=== PATIENT | female | born 1930 | race Caucasian/White ===

== ENCOUNTER 2016-06-18 16:17 | Observation (INO) | payer MEDICARE, OTHER ==
--- NOTE | 2016-06-18 17:00 | C.PDOC ---
History Of Present Illness Patient is a 85 year old female who presents to the ER with a complaint of bilateral leg swelling for the past 3 weeks. Patient states she has pain when she walks. Patient also notes having an episode of chest pain yesterday. Patient was sent by Dr. Holman for admission and observation. Denies any chest pain, nausea, vomiting, fever, chills or palpitations at this time. Time Seen by Provider: 06/18/16 16:43 Chief Complaint (Nursing): Shortness Of Breath History Per: Patient History/Exam Limitations: no limitations Onset/Duration Of Symptoms: Days (3 Weeks) Current Symptoms Are (Timing): Still Present Past Medical History Reviewed: Historical Data, Nursing Documentation, Vital Signs Vital Signs: Last Vital Signs Temp 97.8 F 06/18/16 19:47 Pulse 88 06/18/16 19:47 Resp 18 06/18/16 19:47 BP 166/91 H 06/18/16 19:47 Pulse Ox 95 06/18/16 19:47 - Medical History PMH: Arthritis, HTN, Hypercholesterolemia, Rheumatoid Arthritis Family History: States: Unknown Family Hx - Social History Hx Tobacco Use: No Hx Alcohol Use: No Hx Substance Use: No - Immunization History Hx Tetanus Toxoid Vaccination: Yes Hx Influenza Vaccination: Yes Hx Pneumococcal Vaccination: Yes Review Of Systems Constitutional: Negative for: Fever, Chills Cardiovascular: Negative for: Chest Pain, Palpitations Gastrointestinal: Negative for: Nausea, Vomiting Musculoskeletal: Positive for: Other (Bilateral leg swelling) Physical Exam - Physical Exam Appears: Well, Non-toxic Skin: Normal Color, Warm, Dry Head: Atraumatic, Normacephalic Oral Mucosa: Moist Chest: Symmetrical Cardiovascular: Rhythm Regular Respiratory: Normal Breath Sounds, No Rales, No Rhonchi, No Wheezing Gastrointestinal/Abdominal: Soft, No Tenderness, Rebound, Other (Obese) Extremity: Swelling (Tense pitting edema to mid thigh bilaterally), Other Neurological/Psych: Oriented x3, Normal Speech, Normal Cognition ED Course And Treatment - Laboratory Results Result Diagrams: 06/18/16 17:31 06/18/16 17:31 Lab Interpretation: Abnormal Interpretation Of Abnormal: BUN 26, Cr 0.8 Troponin and BNP normal. ECG: Interpreted By Me ECG Rhythm: Sinus Rhythm ECG Interpretation: Normal O2 Sat by Pulse Oximetry: 98 (Room air) Pulse Ox Interpretation: Normal - Radiology CXR: Interpreted by Me CXR Interpretation: Yes: No Acute Disease Progress Note: EKG, blood work, and chest x-ray ordered. Reevaluation Time: 20:19 Reassessment Condition: Unchanged - Physician Consult Information Time Consulting Physician Contacted: 20:19 Physician Contacted: Celsa Holman Outcome Of Conversation: Patient to be admitted for evaluation and work up of severe peripheral edema. Disposition - Disposition Disposition: HOSPITALIZED Disposition Time: 20:20 Condition: STABLE - POA Present On Arrival: None - Clinical Impression Clinical Impression: Peripheral edema - Scribe Statement The provider has reviewed the documentation as recorded by the Scribe Abelardo Francisco All medical record entries made by the Scribe were at my direction and personally dictated by me. I have reviewed the chart and agree that the record accurately reflects my personal performance of the history, physical exam, medical decision making, and the department course for this patient. I have also personally directed, reviewed, and agree with the discharge instructions and disposition.
[2016-06-18 17:40] LABS: BASO # 0.1 K/uL (0.0-0.2); BASO % 1.1 % (0.0-2.0); EOS # 0.6 K/uL (0.0-0.7); EOS % 8.1 % (0.0-4.0); HEMATOCRIT 35.6 % (34.0-47.0); LYMPH # 1.7 K/uL (1.0-4.3); LYMPH % 23.4 % (20.0-40.0); MEAN CELL VOLUME 93.2 fL (81.0-99.0); MEAN CORPUSCULAR HEMOGLOBIN 30.3 pg (27.0-31.0); MEAN CORPUSCULAR HGB CONC 32.5 g/dL (33.0-37.0); MEAN PLATELET VOLUME 8.3 fL (7.2-11.7); MONO # 1.3 K/uL (0.0-0.8); MONO % 17.8 % (0.0-10.0); NRBC % 0.1 % (0.0-2.0); RED CELL DISTRIBUTION WIDTH 14.2 % (11.5-14.5); WHITE BLOOD COUNT 7.3 K/uL (4.8-10.8)
[2016-06-18 17:44] LABS: CHLORIDE 98 mmol/L (98-107); POTASSIUM 4.1 mmol/L (3.6-5.2); SODIUM 140 mmol/L (132-148)
[2016-06-18 17:46] LABS: BILIRUBIN,TOTAL 0.5 mg/dL (0.2-1.3); GFR AFRICAN-AMERICAN > 60
[2016-06-18 17:47] LABS: ALB/GLOB RATIO 1.2 (1.0-2.1); ALKALINE PHOSPHATASE 90 U/L (38-126); ALT/SGPT 17 U/L (9-52); AST/SGOT 28 U/L (14-36); BLOOD UREA NITROGEN 26 mg/dL (7-17); CALCIUM 8.7 mg/dl (8.6-10.4); CARBON DIOXIDE 28 mmol/L (22-30); GLUCOSE,RANDOM 100 mg/dL (65-105); MAGNESIUM 2.1 mg/dL (1.6-2.3)
[2016-06-19] MEDS: Albuterol-Ipratrop 3 mg / 0.5 (3 ml) UD INH SCH ×4 (01:18→20:52)
--- NOTE | 2016-06-19 10:26 | RAD ---
PROCEDURE: CHEST RADIOGRAPH, 1 VIEW HISTORY: Shortness of breath COMPARISON: 05/01/2014 FINDINGS: LUNGS: Moderate venous congestion. PLEURA: As above. CARDIOVASCULAR: Enlarged ectatic aorta. Mild cardiomegaly. OSSEOUS STRUCTURES: Degenerative changes in the spine and shoulders. VISUALIZED UPPER ABDOMEN: Normal. OTHER FINDINGS: None. IMPRESSION: Moderate venous congestion. Enlarged ectatic aorta. Mild cardiomegaly.
[2016-06-19] MEDS: Pantoprazole 40 mg EC Tab PO SCH (11:26)
[2016-06-19] MEDS: Oxycodone/Acetaminophen 5/325 mg Tab PO PRN ×2 (13:17→21:42)
--- NOTE | 2016-06-19 15:39 | VASCLAB ---
PROCEDURE: Lower Extremity Venous Duplex Exam. HISTORY: Shortness of breath, Pain in limb PRIORS: None. TECHNIQUE: Bilateral common femoral, femoral, popliteal and posterior tibial, peroneal and great saphenous veins were evaluated. Flow was assessed with color Doppler, compressibility, assessment of phasic flow and augmentation response. Report prepared by BALBIR Rush FINDINGS: RIGHT: 1. Common Femoral Vein: 1.1. Compressibility - Fully compressible: Thrombus - None : Flow - Phasic: Augmentation -Normal: Reflux - None. 2. Femoral Vein: 2.1. Compressibility - Fully compressible: Thrombus - None : Flow - Phasic: Augmentation -Normal: Reflux - None. 3. Popliteal Vein: 3.1. Compressibility - Fully compressible: Thrombus - None : Flow - Phasic: Augmentation -Normal: Reflux - None. 4. Posterior Tibial Vein: 4.1. Compressibility - Fully compressible: Thrombus - None: Flow - Phasic: Augmentation -Normal: Reflux - None. 5. Peroneal Vein: 5.1. Compressibility - Fully compressible: Thrombus - None: Flow - Phasic: Augmentation -Normal: Reflux - None. 6. Great Saphenous Vein: 6.1. Compressibility - Fully compressible: Thrombus - None: Flow - Phasic: Augmentation - Normal: Reflux - None. LEFT: 1. Common Femoral Vein: 1.1. Compressibility - Fully compressible: Thrombus - None: Flow - Phasic: Augmentation -Normal: Reflux - None. 2. Femoral Vein: (proximal and mid only) 2.1. Compressibility - Fully compressible: Thrombus - None: Flow - Phasic: Augmentation -Normal: Reflux - None. 3. Popliteal Vein: 3.1. Not examined 4. Posterior Tibial Vein: 4.1. Not examined 5. Peroneal Vein: 5.1. Not examined 6. Great Saphenous Vein: 6.1. Not examined OTHER FINDINGS: Small caliber veins noted bilaterally. IMPRESSION: Right: No evidence of deep or superficial vein thrombosis of the right lower extremity. Normal valve function noted of the right side. Left: No evidence of deep vein thrombosis of the left lower extremity common femoral, and proximal to mid femoral veins. Limited exam of the left lower extremity. Patient requested to end exam due to pain and inability to tolerate testing.
--- NOTE | 2016-06-19 21:28 | CP.PCM.HP ---
History of Present Illness - History of Present Illness History of Present Illness: Chief complaint: Bilateral leg swelling History present illness: 86-year-old female with a history of hypertension and hypercholesteremia rheumatoid arthritis osteoarthritis came to the office with the bilateral worsening leg swelling, and unable to walk and also increasing depression. Patient immediately sent to the emergency room because of the ongoing worsening leg swelling and associated with the shortness of breath the possible CHF. Patient also having significant weakness tiredness and he is a critical particular associate with increasing chest discomfort. Leg swelling was significantly noted especially in the last 1 week. Patient did not have any fall or injury, but she has a severe weakness and associated with the leg swelling, she is using walker for walking but he recently is getting worse Present on Admission - Present on Admission Any Indicators Present on Admission: No History of DVT/PE: No History of Uncontrolled Diabetes: No Urinary Catheter: No Decubitus Ulcer Present: No Review of Systems - Review of Systems Review of Systems: increasing leg swelling noted. complaining of bilateral knee pain No fever. Denies any chest pain. Past Patient History - Past Medical History & Family History Past Medical History?: Yes - Past Social History Smoking Status: Never Smoked - CARDIAC Hx Cardiac Disorders: Yes Hx Hypercholesterolemia: Yes Hx Hypertension: Yes - PULMONARY Hx Respiratory Disorders: No - NEUROLOGICAL Hx Neurological Disorder: No - HEENT Hx HEENT Problems: No - RENAL Hx Chronic Kidney Disease: No - ENDOCRINE/METABOLIC Hx Endocrine Disorders: No - HEMATOLOGICAL/ONCOLOGICAL Hx Blood Disorders: No - INTEGUMENTARY Hx Dermatological Problems: No - MUSCULOSKELETAL/RHEUMATOLOGICAL Hx Musculoskeletal Disorders: Yes Hx Arthritis: Yes Hx Falls: Yes Hx Rheumatoid Arthritis: Yes - GASTROINTESTINAL Hx Gastrointestinal Disorders: No - GENITOURINARY/GYNECOLOGICAL Hx Genitourinary Disorders: No - PSYCHIATRIC Hx Psychophysiologic Disorder: No Hx Substance Use: No - SURGICAL HISTORY Hx Surgeries: Yes Hx Section: Yes Hx Orthopedic Surgery: Yes (TEODORO KNEE) Other/Comment: Right hip fracture-2009 - ANESTHESIA Hx Anesthesia: Yes Hx Anesthesia Reactions: No Hx Malignant Hyperthermia: No Meds Allergies/Adverse Reactions: Allergies Allergy/AdvReac Type Severity Reaction Status Date / Time No Known Allergies Allergy Verified 06/18/16 16:22 Physical Exam - Head Exam Head Exam: ATRAUMATIC Additional comments: Vital signs reviewed No neck vein distention noted Chest good air entry bilaterally, no wheezing or rales noted CVS regular heart sound, no murmur noted Abdomen soft, nontender. bilateral pedal edema noted HOSPITAL RECEIVING CLERK alert awake oriented 3, no functional neurological deficit Results - Vital Signs Recent Vital Signs: Last Vital Signs Temp 98.4 F 06/19/16 07:00 Pulse 81 06/19/16 14:51 Resp 18 06/19/16 07:00 BP 168/90 H 06/19/16 11:27 Pulse Ox 99 06/19/16 07:00 - Labs Result Diagrams: 06/20/16 07:02 06/20/16 07:02 Labs: Laboratory Results - last 24 hr 06/19/16 06/19/16 06/19/16 06:57 12:04 16:41 POC Glucose (mg/dL) 86 114 H 100 Assessment & Plan (1) HTN (hypertension) Status: Acute (2) Peripheral edema Assessment and Plan: 86-year-old female with history of rheumatoid arthritis hypertension and hypercholesteremia osteoarthritis admitted to the hospital with the bilateral ureteral worsening leg swelling. Fluid overload state. Hypertension uncontrolled. Weakness. .She also has evidence of depression. Worsening recently. We'll start the patient on IV Lasix the glucose control blood pressure control monitor the daily weight and will follow the patient Status: Acute (3) Rheumatoid arthritis Status: Acute
[2016-06-20 00:19] VITALS: RESP 20
[2016-06-20] MEDS: Albuterol-Ipratrop 3 mg / 0.5 (3 ml) UD INH SCH ×3 (01:10→13:00)
[2016-06-20 07:21] LABS: HEMATOCRIT 35.4 % (34.0-47.0); MEAN CELL VOLUME 93.6 fL (81.0-99.0); MEAN CORPUSCULAR HEMOGLOBIN 30.6 pg (27.0-31.0); MEAN CORPUSCULAR HGB CONC 32.7 g/dL (33.0-37.0); MEAN PLATELET VOLUME 8.3 fL (7.2-11.7); RED CELL DISTRIBUTION WIDTH 14.7 % (11.5-14.5); WHITE BLOOD COUNT 6.2 K/uL (4.8-10.8)
[2016-06-20 07:36] LABS: CHLORIDE 96 mmol/L (98-107)
[2016-06-20 07:37] LABS: POTASSIUM 3.6 mmol/L (3.6-5.2); SODIUM 140 mmol/L (132-148)
[2016-06-20 07:39] LABS: ALB/GLOB RATIO 1.2 (1.0-2.1); ALKALINE PHOSPHATASE 95 U/L (38-126); AST/SGOT 34 U/L (14-36); BILIRUBIN,TOTAL 0.8 mg/dL (0.2-1.3); BLOOD UREA NITROGEN 16 mg/dL (7-17); CARBON DIOXIDE 32 mmol/L (22-30); GFR AFRICAN-AMERICAN > 60; GLUCOSE,RANDOM 97 mg/dL (65-105); TOTAL PROTEIN 7.4 g/dL (6.3-8.3)
[2016-06-20 07:40] LABS: ALT/SGPT 15 U/L (9-52); CALCIUM 8.5 mg/dl (8.6-10.4)
[2016-06-20 08:42] VITALS: O2SAT 95
[2016-06-20] MEDS: Pantoprazole 40 mg EC Tab PO SCH (09:46)
[2016-06-20 17:08] VITALS: BP 159/89; PULSE 87; TEMP 98.4
--- NOTE | 2016-06-21 17:54 | CARD ---
APPROVED REPORT EXAM: Two-dimensional and M-mode echocardiogram with Doppler and color Doppler. Other Information Quality : AverageRhythm : NSR INDICATION Dyspnea Peripheral Edema FLUID OVERLOAD RISK FACTORS Hypertension Hyperlipidemia M-Mode DIMENSIONS RVDd1.63 (2.1-3.2cm)Left Atrium (MM)3.68 (2.5-4.0cm) IVSd0.94 (0.7-1.1cm)Aortic Root3.09 (2.2-3.7cm) LVDd4.20 (4.0-5.6cm)Aortic Cusp Exc.2.15 (1.5-2.0cm) PWd1.14 (0.7-1.1cm)FS (%) 50 % LVDs2.12 (2.0-3.8cm)LVEF (%)81 (>50%) Mitral Valve MV E Datajool20.7cm/sMV A Qfkzjrzb581.5cm/sE/A ratio0.7 TDI E/Lateral E'0.0E/Medial E'0.0 Tricuspid Valve TR Peak Bdaxcdfq282dx/sTR Peak Gr.27mhObHRZS79mbSy LEFT VENTRICLE The left ventricle is normal size. There is normal left ventricular wall thickness. The left ventricular function is normal. The left ventricular ejection fraction is within the normal range. No regional wall motion abnormalities noted. Transmitral Doppler flow pattern is Grade I-abnormal relaxation pattern. No left ventricle thrombus noted on this study. There is no ventricular septal defect visualized. There is no left ventricular aneurysm. There is no mass noted in the left ventricle. RIGHT VENTRICLE The right ventricle is normal size. There is normal right ventricular wall thickness. The right ventricular systolic function is normal. ATRIA The left atrium size is normal. The right atrium size is normal. INTRA-ATRIAL SEPTAL ANEURYSM IS NOTED. UNCLEAR IF THERE IS A PFO OR FLOW ACROSS IAS RECOMMEND BUBBLE STUDY IF CLINICALLY INDICATED. AORTIC VALVE The aortic valve is mildly sclerotic. The aortic valve is tri-cuspid. No aortic regurgitation is present. There is no aortic valvular stenosis. There is no aortic valvular vegetation. MITRAL VALVE The mitral valve is normal in structure and function. There is no evidence of mitral valve prolapse. There is no mitral valve stenosis. Mitral regurgitation is mild. TRICUSPID VALVE The tricuspid valve is normal in structure and function. There is mild tricuspid regurgitation. PAP = 40-50MMHG There is no tricuspid valve prolapse or vegetation. There is no tricuspid valve stenosis. PULMONIC VALVE The pulmonary valve is normal in structure and function. mILD PI NOTED There is no pulmonic valvular stenosis. GREAT VESSELS The aortic root is normal in size. The ascending aorta is normal in size. The pulmonary artery is normal. The IVC is normal in size and collapses <50% with inspiration. RAP IS 10 TO 15 PERICARDIAL EFFUSION The pericardium appears normal. There is no pleural effusion. <Conclusion> The left ventricular ejection fraction is within the normal range. Transmitral Doppler flow pattern is Grade I-abnormal relaxation pattern. INTRA-ATRIAL SEPTAL ANEURYSM IS NOTED. UNCLEAR IF THERE IS A PFO OR FLOW ACROSS IAS RECOMMEND BUBBLE STUDY IF CLINICALLY INDICATED. Mitral regurgitation is mild. There is mild tricuspid regurgitation. PAP = 40-50MMHG The IVC is normal in size and collapses <50% with inspiration. RAP IS 10 TO 15
--- NOTE | 2016-06-22 09:02 | CARD ---
APPROVED REPORT EKG Measurement Heart [id number] MI [id number] <Conclusion> Normal sinus rhythm Normal ECG
--- NOTE | 2016-08-04 20:23 | DS ---
HISTORY OF PRESENT ILLNESS: This 86-year-old female with a history of hypertension, hypercholesterol emia, osteoarthritis and rheumatoid arthritis associated with debilitating arthritis of the legs, cam e to the office with increasing bilateral leg swelling and unable to walk, shortness of breath. The patient was immediately hospitalized and closely monitored in the hospital. The patient started havi ng evidence of fluid overload associated with bilateral leg swelling, diuretics were given and the pa tient slowly improved, clinically stable. She is otherwise stable and physical therapy started, able to walk. The patient can be discharged home. She will follow up as an outpatient. FINAL DIAGNOSES: Fluid overload, hypertension, pedal edema, possible venous insufficiency, osteoarth ritis and rheumatoid arthritis debility. Celsa Holman MD cc: [id number] TT: 08/04/2016 20:23:12 ct
== END 2016-06-20 17:00 | disposition home or self-care (01) ==
LOC: C.ER 16:17 → C.3T 20:20
PROVIDERS: ADMIT Internal Medicine; ATTEND Internal Medicine
DX: R60.9 Edema, unspecified (principal); I10 Essential (primary) hypertension; E78.00 Pure hypercholesterolemia, unspecified; M06.9 Rheumatoid arthritis, unspecified
CPT/HCPCS: 36415; 71010; 80053; 82948; 83735; 83880; 84484; 85025; 85027; 93005; 93306; 93970; 94640; 96372; 96374; 96376; 97110; 97162; 97530; 99285; G0378; G8978; G8979; J1644; J1940

== ENCOUNTER 2018-04-23 09:59 | Emergency (ER) | payer MEDICARE, MEDICAID ==
--- NOTE | 2018-04-23 11:11 | C.PDOC ---
History Of Present Illness 87 y/o female pt with hx of arthritis, asthma, HTN and depression presents to the ER c/o diarrhea x3 since last night. Pt denies nausea, vomiting, fever, chills, abdominal pain, chest pain and SOB. Time Seen by Provider: 04/23/18 10:39 Chief Complaint (Nursing): GI Problem History Per: Patient History/Exam Limitations: no limitations Onset/Duration Of Symptoms: Days (x1) Current Symptoms Are (Timing): Still Present Past Medical History Reviewed: Historical Data, Nursing Documentation, Vital Signs Vital Signs: Last Vital Signs Temp 98.3 F 04/23/18 10:00 Pulse 78 04/23/18 10:00 Resp 18 04/23/18 10:00 BP 179/79 H 04/23/18 10:00 Pulse Ox 99 04/23/18 10:00 - Medical History PMH: Arthritis, HTN, Hypercholesterolemia, Rheumatoid Arthritis Family History: States: Unknown Family Hx - Social History Hx Tobacco Use: No Hx Alcohol Use: No Hx Substance Use: No - Immunization History Hx Tetanus Toxoid Vaccination: Yes Hx Influenza Vaccination: Yes Hx Pneumococcal Vaccination: Yes Review Of Systems Except As Marked, All Systems Reviewed And Found Negative. Constitutional: Negative for: Fever, Chills Cardiovascular: Negative for: Chest Pain Respiratory: Negative for: Shortness of Breath Gastrointestinal: Positive for: Diarrhea. Negative for: Nausea, Vomiting, Abdominal Pain Physical Exam - Physical Exam Appears: Non-toxic, No Acute Distress Skin: Warm, Dry, No Rash Head: Normacephalic Chest: Symmetrical, No Deformity Cardiovascular: Rhythm Regular Respiratory: Normal Breath Sounds, No Rales, No Rhonchi, No Wheezing Gastrointestinal/Abdominal: Soft, No Tenderness, No Distention, No Guarding, No Rebound Back: No CVA Tenderness Extremity: Normal ROM (x4), No Tenderness, No Pedal Edema, No Calf Tenderness, Capillary Refill (<2 sec), No Deformity, No Swelling Pulses: Left Dorsalis Pedis: Normal, Right Dorsalis Pedis: Normal Neurological/Psych: Oriented x3, Normal Speech ED Course And Treatment - Laboratory Results Result Diagrams: 04/23/18 11:20 04/23/18 11:20 O2 Sat by Pulse Oximetry: 99 (RA) Pulse Ox Interpretation: Normal Medical Decision Making Medical Decision Making: Plans: -- chem labs -- blood work -- IV fluids Disposition - Disposition Referrals: at [facility] [Outside] at [facility] [Outside] at [place] [Outside] Disposition: HOME/ ROUTINE Disposition Time: 17:34 Condition: GOOD Instructions: [place] Diet Forms: [facility] (Arabic) - Clinical Impression Clinical Impression: Diarrhea - Scribe Statement The provider has reviewed the documentation as recorded by the Scribe Mel Harris Provider Attestation: All medical record entries made by the Scribe were at my direction and personally dictated by me. I have reviewed the chart and agree that the record accurately reflects my personal performance of the history, physical exam, medical decision making, and the department course for this patient. I have also personally directed, reviewed, and agree with the discharge instructions and disposition.
[2018-04-23] MEDS ORDERED: Sodium Chloride 0.9% 500 ML IV SCH (11:15)
[2018-04-23] MEDS ORDERED: Sodium Chloride 0.9% 500 ML IV ONE (11:27)
[2018-04-23 11:44] LABS: BASO % 0.7 % (0.0-2.0); EOS # 0.4 K/uL (0.0-0.7); EOS % 6.7 % (0.0-4.0); HEMOGLOBIN 11.6 g/dL (11.0-16.0); LYMPH # 1.3 K/uL (1.0-4.3); MEAN CORPUSCULAR HEMOGLOBIN 32.5 pg (27.0-31.0); MEAN CORPUSCULAR HGB CONC 31.9 g/dL (33.0-37.0); MEAN PLATELET VOLUME 8.7 fL (7.2-11.7); MONO % 16.2 % (0.0-10.0); NEUT # 3.7 K/uL (1.8-7.0); NEUT % 56.4 % (50.0-75.0); RBC 3.58 Mil/uL (3.80-5.20); RED CELL DISTRIBUTION WIDTH 15.5 % (11.5-14.5); WHITE BLOOD COUNT 6.5 K/uL (4.8-10.8)
[2018-04-23 11:53] LABS: ALB/GLOB RATIO 1.3 (1.0-2.1); ALBUMIN 3.6 g/dL (3.5-5.0); ALT/SGPT 17 U/L (9-52); AST/SGOT 25 U/L (14-36); BLOOD UREA NITROGEN 19 mg/dL (7-17); CALCIUM 8.3 mg/dl (8.6-10.4); GFR NON-AFRICAN AMERICAN 60
[2018-04-23 13:36] LABS: SQUAMOUS EPITHIAL < 1 /hpf (0-5); URINE BILIRUBIN NEGATIVE (NEGATIVE); URINE BLOOD NEGATIVE (NEGATIVE); URINE CLARITY Clear (Clear); URINE COLOR Yellow (YELLOW); URINE GLUCOSE (UA) NORMAL (Normal); URINE LEUKOCYTE ESTERASE NEG Leu/uL (Negative); URINE PROTEIN 3+ mg/dL (NEGATIVE); URINE UROBILINOGEN NORMAL mg/dL (0.2-1.0)
[2018-04-23 14:20] VITALS: BP 191/84; PULSE 80; RESP 20; TEMP 98.2
[2018-04-24 16:06] VITALS: O2SAT 99
== END 2018-04-23 17:34 | disposition home or self-care (01) ==
LOC: C.ER 09:59
DX: R19.7 Diarrhea, unspecified (principal); I10 Essential (primary) hypertension; E78.00 Pure hypercholesterolemia, unspecified; M06.9 Rheumatoid arthritis, unspecified
CPT/HCPCS: 80053; 81001; 85025; 87086; 87181; 96360; 99284; J7040